=== PATIENT | female | born 1970 | race African-American/Black ===

== ENCOUNTER 2020-04-30 10:24 | Emergency (ER) | payer OTHER, SELFPAY ==
--- NOTE | 2020-04-30 10:36 | ED.EXTPRO ---
HPI - Extremity Problem General Chief complaint: Extremity Injury, Lower Stated complaint: left leg pain Time Seen by Provider: 04/30/20 10:50 Source: patient and RN notes reviewed Mode of arrival: ambulatory Limitations: no limitations History of Present Illness HPI Narrative: 50-year-old female presents with concern for left anterior upper leg pain. Reports symptoms started yesterday, without known injury or trauma. Reports she usually works out 2 days a week on a treadmill, elliptical, bike, did not notice any pain with her last workout 2 days ago. She denies any swelling, redness, bruising. Reports no pain at rest, pain with walking and certain movements of her leg. Reports pain with deep palpation to the anterior thigh. Denies hip pain, knee pain. Denies any calf redness, swelling, tenderness. Denies intervention. MD Complaint: extremity pain Related Data Home Medications Medication Instructions Recorded Confirmed Calcium 04/30/20 Pain Medication Unknown 04/30/20 ergocalciferol (vitamin D2) 04/30/20 Allergies Allergy/AdvReac Type Severity Reaction Status Date / Time codeine Allergy Severe GI UPSET Verified 02/15/19 15:20 Review of Systems Review of Systems: Narrative: CONSTITUTIONAL: Denies malaise, chills, sweats, or fever. CARDIOVASCULAR: Denies chest pain, palpitations, or edema. RESPIRATORY: Denies cough or dyspnea. SKIN: Denies redness, swelling, bruising, open skin MUSCULOSKELETAL: Reports left anterior upper leg pain with weightbearing, certain movements, no pain at rest NEUROLOGIC: Denies numbness, weakness All systems reviewed & are unremarkable except as noted in HPI and below PMFSH Surgical History Surgical History (Updated 02/15/19 @ 16:02 by Kristy Gifford PA-C) History of cholecystectomy History of gastric bypass History of hysterectomy History of inguinal hernia repair Family History Family History (Updated 11/15/13 @ 07:13 by DOCTOR UNKNOWN) Father Hypertension Sibling Hypertension Grandparent Family history of elevated blood lipids Mother Patient's mother is Hypertension Family history of lung cancer Social History Social History Smoking status: Never smoker Second hand tobacco smoke exposure: No Alcohol intake: never Comments At time of signature, agree with nursing past medical, surgical, social and family history. There is no relevant family history pertinent to the presenting complaint Exam Narrative: Exam Narrative: GENERAL: Well-appearing, well-nourished, and in no acute distress. HEAD: Normocephalic, atraumatic. EYES: PERRLA, conjunctivae clear NECK: Supple. CHEST: Speaks in full sentences. No respiratory distress. HEART: Regular rate and rhythm. Normal and equal peripheral pulses. EXTREMITIES: Left hip, knee have normal strength and sensation, normal range of motion. No edema or ecchymosis. 5/5 strength with hip and knee flexion and extension. Normal sensation with sensitivity to light touch and pain. Anterior quadricep tenderness to deep palpation, no hip tenderness, no iliac crest tenderness, no knee tenderness. No open wounds, no skin tenting, no devitalized tissue or atrophy, no trophic changes, no obvious deformity, alignment normal, nearby joints and structures intact. Distal pulses palpable and equal bilaterally, skin warm, dry, pink. Capillary refill less than 3 seconds. SKIN: Warm, dry, no rash. NEURO: Alert and oriented x3. PSYCH: Normal mood and affect Course Course Emergency Course: Patient is aware of diagnosis, understands and agrees to treatment plan. Anticipatory guidance given. Patient agrees to follow-up as directed and is aware of reasons to seek care at the emergency department. Portions of this record may have been created with voice recognition software Vital Signs Vital signs: Vital Signs Temperature 97.1 F L 04/30/20 10:41 Pulse Rate 85 04/30/20 10:41 Respiratory Rate 16 04/30/20 10:41 Bl
[2020-04-30 10:41] VITALS: BP 125/76; PULSE 85; RESP 16; TEMP 36.2; O2SAT 100
[2020-04-30 10:50] VITALS: BP 125/76; PULSE 85; RESP 16; TEMP 36.2; O2SAT 100
== END 2020-04-30 11:05 | disposition home or self-care (01) ==
PROVIDERS: Emergency Provider Nurse Practitioner
DX: S76.112A Strain of left quadriceps muscle, fascia and tendon, initial encounter (principal); X58.XXXA Exposure to other specified factors, initial encounter; Z98.84 Bariatric surgery status
CPT/HCPCS: 99213; G0463

== ENCOUNTER 2020-07-09 14:37 | Outpatient (CLI) | payer OTHER, SELFPAY ==
--- NOTE | ~2020-07-09 | MM_ITS ---
EXAMINATION: MM screening [facility] BI w alejandro HISTORY: Screening mammogram TECHNIQUE: Craniocaudal and mediolateral oblique 3-D tomosynthesis images were obtained and synthetic 2-D images were generated. CAD analysis was submitted and interpreted. COMPARISON: 04/21/2018, 07/01/2014 BREAST PARENCHYMAL COMPOSITION: There are scattered areas of fibroglandular density. FINDINGS: There is no evidence of suspicious mass, calcification, or architectural distortion to sugg est malignancy in either breast. There has been no suspicious interval change. IMPRESSION: 1. No mammographic evidence of malignancy. 2. Recommend routine screening mammography in one year. BI-RADS Category 1: Negative Reviewed, dictated and finalized at location A.
== END 2020-07-09 14:38 | disposition home or self-care (01) ==
LOC: ANHIMG 14:40
PROVIDERS: PCP Obstetrics & Gynecology; Visit Provider Obstetrics & Gynecology
DX: Z12.31 Encounter for screening mammogram for malignant neoplasm of breast (principal)
CPT/HCPCS: 77063; 77067

== ENCOUNTER 2020-08-23 17:32 | Emergency (ER) | payer BC, SELFPAY ==
[2020-08-23 17:43] VITALS: BP 132/89; PULSE 91; RESP 16; TEMP 36.7; O2SAT 99
--- NOTE | 2020-08-23 17:43 | ED.LOWEXIN ---
HPI - Extremity Injury (Lower) General Chief Complaint: Wound/Laceration Stated Complaint: cut right ankle Time Seen by Provider: 08/23/20 17:43 Source: patient and RN notes reviewed Mode of arrival: ambulatory Limitations: no limitations History of Present Illness HPI Narrative: 50-year-old female presents to the [facility] with complaints of a laceration to the lateral aspect right ankle. 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 Unsure of tDap. Patient states that she was walking through the grass when something caught her on her ankle. Noticed a piece of glass laying in the grass Bleeding is controlled. Related Data Home Medications Medication Instructions Recorded Confirmed biotin 5,000 mcg disintegrating 10,000 mcg PO DAILY 05/02/20 06/13/20 tablet calcium carbonate 600 mg calcium 600 mg PO DAILY 05/02/20 06/13/20 (1,500 mg) tablet famotidine 20 mg tablet 20 mg PO DAILY 05/02/20 06/13/20 ferrous sulfate PO 05/02/20 06/13/20 multivitamin 1 tablet PO DAILY 05/02/20 06/13/20 Allergies Allergy/AdvReac Type Severity Reaction Status Date / Time codeine Allergy Severe GI UPSET Verified 06/13/20 09:23 Review of Systems Review of Systems: All systems reviewed & are unremarkable except as noted in HPI and below Constitutional: Constitutional: Reports no additional constitutional complaints Cardiovascular: Cardiovascular: Reports no additional cardiovascular complaints Respiratory: Respiratory: Reports no additional respiratory complaints Musculoskeletal: Musculoskeletal: Reports as per HPI and Reports joint swelling (Right lateral ankle) Integumentary/Breasts: Skin/Breast: Reports as per HPI Comments: Laceration right lateral ankle Neurologic: Reports system reviewed and no additional complaints, except as documented Psychiatric: Psychiatric: Reports no additional psychiatric complaints [facility] Past Medical History Medical History Left leg pain Surgical History Surgical History History of cholecystectomy History of gastric bypass History of hysterectomy History of inguinal hernia repair Family History Family History Father Hypertension Sibling Hypertension Grandparent Family history of elevated blood lipids Mother Patient's mother is Hypertension Family history of lung cancer Social History Social History Second hand tobacco smoke exposure: No Alcohol intake: never Substance use: never Substance use type: does not use Gender identity (if verbalized by the patient): Female Comments At the time of my signature, I reviewed and agree with the nursing past medical, surgical, social, and family history. There is no relevant family history pertinent to the patient complaint. Exam Const: General: no acute distress and alert Orientation/consciousness: patient oriented x3 Neck: Neck: normal visual inspection Chest: Chest palpation & inspection: normal inspection of the chest Resp: Effort & Inspection: normal respiratory effort Auscultation: clear to auscultation bilaterally Back/Spine/Pelvis: Back: no CVA tenderness Skin: General skin exam: normal color Wounds: wounds noted laceration right lateral ankle size (2 cm); no drainage Neuro: General: patient oriented x3 and moves all extremities Speech: normal speech Gait exam (Neuro): Normal gait present Extrem: General: normal to inspection and no pedal edema Psych: Appearance: grossly normal and well kempt Mental Status: mental status grossly normal Attitude: cooperative Thought content: Yes Normal thought content present Course Vital Signs Vital signs: Vital Signs Temperature 98.1 F 08/23/20 17:43 Pulse Rate 91 08/23/20 17:43 Respiratory Rate 16 08/23/20 17:43 Blood Pressure 13
[2020-08-23] MEDS: TETANUS,DIPHTHERIA,AC PERTUSSIS ADULT (0.5 ML) BOOSTRIX IM (18:11)
== END 2020-08-23 18:35 | disposition home or self-care (01) ==
PROVIDERS: Emergency Provider Nurse Practitioner
DX: S91.011A Laceration without foreign body, right ankle, initial encounter (principal); W25.XXXA Contact with sharp glass, initial encounter; Z23 Encounter for immunization; Z98.84 Bariatric surgery status
CPT/HCPCS: 12001; 90471; 90715; 99212; G0463

== ENCOUNTER 2020-09-10 17:29 | Emergency (ER) | payer BC, SELFPAY ==
[2020-09-10 17:36] VITALS: BP 114/70; PULSE 99; RESP 16; TEMP 36.7; O2SAT 100
--- NOTE | 2020-09-10 17:48 | ED.SKABFB ---
HPI - Skin/Abscess/Foreign Bdy General Chief complaint: Skin/Abscess/Foreign Body Stated complaint: stitches removal Time Seen by Provider: 09/10/20 17:49 Source: patient Mode of arrival: ambulatory Limitations: no limitations History of Present Illness HPI narrative: Sameer Perez is a 50 yo female who had sutures placed 17 days ago and has not had them removed yet because could not get into her doctor. She has 4 sutures on the lateral side of her right ankle Related Data Home Medications Medication Instructions Recorded Confirmed biotin 5,000 mcg disintegrating 10,000 mcg PO DAILY 05/02/20 09/10/20 tablet calcium carbonate 600 mg calcium 600 mg PO DAILY 05/02/20 09/10/20 (1,500 mg) tablet famotidine 20 mg tablet 20 mg PO DAILY 05/02/20 09/10/20 ferrous sulfate PO 05/02/20 06/13/20 multivitamin 1 tablet PO DAILY 05/02/20 09/10/20 Allergies Allergy/AdvReac Type Severity Reaction Status Date / Time codeine AdvReac Severe GI UPSET Verified 09/10/20 17:52 Review of Systems Review of Systems: Narrative: CONSTITUTIONAL: Denies fever, chills, sweats. EYES: Denies visual changes, redness, discharge. ENT: Denies rhinorrhea, congestion, sore throat, otalgia. CARDIOVASCULAR: Denies chest pain, palpitations, edema. RESPIRATORY: Denies dyspnea, wheezing, cough GASTROINTESTINAL: Denies abdominal pain, nausea, vomiting, diarrhea. GENITOURINARY: Denies dysuria, hematuria, abnormal discharge SKIN: Denies rash or itching. Suture removal NEUROLOGIC: Denies numbness, or focal weakness. PSYCHIATRIC: Denies anxiety or depression. [facility] Past Medical History Medical History Left leg pain Surgical History Surgical History History of cholecystectomy History of gastric bypass History of hysterectomy History of inguinal hernia repair Family History Family History Father Hypertension Sibling Hypertension Grandparent Family history of elevated blood lipids Mother Patient's mother is Hypertension Family history of lung cancer Social History Social History Second hand tobacco smoke exposure: No Alcohol intake: never Substance use: never Substance use type: does not use Gender identity (if verbalized by the patient): Female Comments At time of signature, I agree with nursing past medical, surgical, social and family history. There is no relevant family history pertinent to the presenting complaint. Exam Narrative: Exam Narrative: GENERAL: This is a well-nourished, well-developed patient, in mild distress. HEAD: normocephalic, atraumatic. EYES: Sclera clear/white. Vision is grossly intact. EARS: External ears normal, Hearing grossly intact. NOSE: External nose normal without nasal discharge, nares without redness, no rhinorrhea. THROAT: Mucous membranes moist, NECK: Neck supple, CARDIOVASCULAR: Regular rate and rhythm without murmurs, gallops, or rubs. RESPIRATORY: Clear to auscultation. Breath sounds equal bilaterally. No wheezes, rales, or rhonchi. GASTROINTESTINAL: not performed SKIN: warm, intact with no suspicious lesions or rash, good texture and turgor. 4 sutures right lateral ankle NEURO: awake, alert, and oriented to person, place and time. There were no obvious focal neurologic abnormalities. Steady gait EXTREMITIES: Normal range of motion. BACK: Nontender without deformity Course Course Emergency Course: Comes to [facility] for suture removal Removal of 4 sutures from lateral right ankle, area healed and well approximated, no redness, no drainage Vital Signs Vital signs: Vital Signs Temperature 98.0 F 09/10/20 17:36 Pulse Rate 99 09/10/20 17:36 Respiratory Rate 16 09/10/20 17:36 Blood Pressure 114/70 09/10/20 17:36 Pulse Oximetry
== END 2020-09-10 18:20 | disposition home or self-care (01) ==
PROVIDERS: Emergency Provider Nurse Practitioner
DX: S91.011A Laceration without foreign body, right ankle, initial encounter (principal); X58.XXXA Exposure to other specified factors, initial encounter
CPT/HCPCS: 99211; G0463

== ENCOUNTER 2021-04-21 07:58 | Outpatient (CLI) | payer BC, SELFPAY ==
--- NOTE | ~2021-04-21 | XR_ITS ---
EXAMINATION: XR UGIAC wo kub DATE: 04/21/2021 08:57 INDICATION: Gastric bypass. Dysphagia. Left-sided abdominal pain. TECHNIQUE: The patient drank thick barium, gas-producing crystals, and thin barium. A total of 710 fl uoroscopic images of the esophagus, stomach, and proximal small bowel were obtained. Fluoroscopy expo sure time was 1.6 minutes. Total DAP was 11.814 mGycm^2 COMPARISON: None. FINDINGS: The esophagus is normal without mass or stricture. Esophageal motility is normal. There is no hiatal hernia. Postoperative change of prior gastric bypass procedure with very small residual gas tric remnant with contrast passing almost immediately into the small bowel across the gastrojejunal a nastomosis. There was no gastroesophageal reflux with provocative maneuvers. The visualized small bow el is normal. IMPRESSION: 1. Expected appearance post gastric bypass procedure with prompt passage of contrast from the esophag us through the small gastric remnant and gastrojejunal anastomosis. No evident strictures. Reviewed, dictated and finalized at location A. HALMOLOGY TECHNICIAN IMPRESSION: 1. Expected appearance post gastric bypass procedure with prompt passage of con trast from the esophagus through the small gastric remnant and gastrojejunal an astomosis. No evident strictures.
[2021-04-21 09:56] LABS: Hematocrit 37.8 % (37.0-47.0); Hemoglobin 12.8 g/dL (12.0-15.0); Immature Reticulocyte Fraction 5.3 % (3.0-15.9); Mean Corpuscular HGB Conc 33.9 g/dl (32-36); Mean Corpuscular Volume 85.7 fl (80-100); Mean Platelet Volume 9.4 fl (7.4-10.4); Platelet Count Result 422 k/mm3 (150-375); Red Blood Count 4.41 M/mm3 (4.2-5.4); Red Cell Distribution Width 12.1 % (11.5-14.5); Reticulocyte Hemoglobin Conten 34.7 pg (28.2-35.7); Reticulocyte Percent 1.18 % (0.7-4.3); Reticulocytes Absolute 0.05 B/L (32.2-175.7); White Blood Count 3.4 K/mm3 (4.5-10.0)
[2021-04-21 10:05] LABS: Alanine Aminotransferase 17 U/L (4-35); Alkaline Phosphatase 103 U/L (38-126); Anion Gap 4 mmol/L (8-16); Aspartate Amino Transferase 22 U/L (14-36); Bilirubin,Total 0.4 mg/dL (0.2-1.3); Blood Urea Nitrogen 12 mg/dL (7-17); Calcium 8.7 mg/dL (8.4-10.2); Carbon Dioxide 28 mmol/L (22-30); Chloride 106 mmol/L (98-107); Estimated Glomerular Filt Rate > 60; Glucose 92 mg/dL (65-110); Potassium 3.6 mmol/L (3.4-5.0); Sodium 138 mmol/L (137-145)
[2021-04-21 10:48] LABS: Vitamin D 25 Hydroxy 32.7 ng/mL
[2021-04-21 11:09] LABS: Folic Acid 6.3 ng/mL (2.76->20); Vitamin B12 > 1000.0 pg/mL (239-931)
[2021-04-21 13:16] LABS: Iron 76 ug/dL (37-170)
[2021-04-21 13:19] LABS: Percent Iron Saturation 36 % (20-50)
[2021-04-23 20:18] LABS: Red Blood Cell Folate 392 ng/mL RBC (>280)
[2021-04-24 18:15] LABS: Vitamin A 21 mcg/dL (38-98)
== END 2021-04-21 07:59 | disposition home or self-care (01) ==
LOC: ANHIMG 08:09
DX: R13.10 Dysphagia, unspecified (principal); K95.89 Other complications of other bariatric procedure; K91.2 Postsurgical malabsorption, not elsewhere classified
CPT/HCPCS: 36415; 74246; 80053; 82306; 82525; 82607; 82728; 82746; 82747; 83540; 83550; 83735; 84590; 85027; 85046

== ENCOUNTER 2021-10-07 15:02 | Outpatient (CLI) | payer MEDICAID, SELFPAY ==
--- NOTE | ~2021-10-07 | MM_ITS ---
EXAMINATION: MM screening [facility] BI w alejandro HISTORY: Screening TECHNIQUE: Craniocaudal and mediolateral oblique 3-D tomosynthesis images were obtained and synthetic 2-D images were generated. CAD analysis was submitted and interpreted. COMPARISON: Comparison to multiple prior studies sequentially, with oldest reviewed study dated 04/20. BREAST PARENCHYMAL COMPOSITION: Breast composed of scattered areas of fibroglandular density FINDINGS: There is no evidence of suspicious mass, calcification, or architectural distortion to sugg est malignancy in either breast. There has been no suspicious interval change. IMPRESSION: 1. No mammographic evidence of malignancy. 2. Recommend routine screening mammography in one year. BI-RADS Category 1: Negative Reviewed, dictated and finalized at location A.
== END 2021-10-07 15:03 | disposition home or self-care (01) ==
LOC: ANHIMG 15:04
PROVIDERS: Visit Provider Obstetrics & Gynecology
DX: Z12.31 Encounter for screening mammogram for malignant neoplasm of breast (principal)
CPT/HCPCS: 77063; 77067

== ENCOUNTER 2022-02-08 13:09 | Emergency (ER) | payer OTHER, SELFPAY ==
[2022-02-08 14:00] VITALS: BP 108/81; PULSE 82; RESP 14; TEMP 37.2; O2SAT 100
--- NOTE | 2022-02-08 14:02 | ED.URI ---
HPI - URI/Sore Throat General Chief Complaint: Upper Respiratory Infection Stated Complaint: Coughing, Running Nose Time Seen by Provider: 02/08/22 14:02 Source: patient, RN notes reviewed and old records reviewed Mode of arrival: ambulatory Limitations: no limitations History of Present Illness HPI Narrative: 52-year-old female presents to the [facility] with 3 days of cough and runny nose. 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 Has taken Tylenol and Mucinex Related Data Home Medications Medication Instructions Recorded Confirmed phentermine 37.5 mg capsule 37.5 mg PO DAILY 02/08/22 02/08/22 Allergies Allergy/AdvReac Type Severity Reaction Status Date / Time codeine AdvReac Severe GI UPSET Verified 02/08/22 13:43 Review of Systems Review of Systems: All systems reviewed & are unremarkable except as noted in HPI and below Constitutional: Constitutional: Reports no additional constitutional complaints, Denies chills and Denies fever(s) Eyes: Eyes: Reports no additional eye complaints ENT: Reports as per HPI (Rhinorrhea), Reports post nasal drip and Reports sinus pressure Cardiovascular: Cardiovascular: Reports no additional cardiovascular complaints Respiratory: Respiratory: Reports as per HPI, Reports cough, Denies dyspnea and Denies wheezing Gastrointestinal: Gastrointestinal: Reports no additional gastrointestinal complaints Musculoskeletal: Musculoskeletal: Reports no additional musculoskeletal complaints Integumentary/Breasts: Skin/Breast: Reports system reviewed and no additional complaints, except as docu Neurologic: Reports system reviewed and no additional complaints, except as documented Psychiatric: Psychiatric: Reports no additional psychiatric complaints Allergic/Immunologic: Allergic/Immunologic: Reports no additional allergic/immunologic complaints [facility] Past Medical History Medical History (Updated 02/08/22 @ 14:17 by Bhavya Mendoza APRN) Left leg pain Surgical History Surgical History History of cholecystectomy History of gastric bypass History of hysterectomy History of inguinal hernia repair Family History Family History Father Hypertension Sibling Hypertension Grandparent Family history of elevated blood lipids Mother Patient's mother is Hypertension Family history of lung cancer Social History Social History Smoking status: Never smoker Second hand tobacco smoke exposure: No Alcohol intake: never Substance use: never Substance use type: does not use Gender identity (if verbalized by the patient): Female Comments At the time of my signature, I reviewed and agree with the nursing past medical, surgical, social, and family history. There is no relevant family history pertinent to the patient complaint. Exam Const: General: healthy appearing, comfortable, no acute distress, well developed, alert and well nourished Nutritional Appearance: well nourished and obese Orientation/consciousness: patient oriented x3 Limitations: no limitations HENMT: Head: normal to inspection Ears: external ears normal, TM's normal bilaterally and EAC's normal Face/Nose/Sinus: Normal external nose present and Nasal discharge present clear bilateral Face and sinus: normal facial exam Mouth: Yes Normal oral and palatal mucosa present, Yes lip normal and Yes moist mucous membranes Throat: posterior oropharynx normal and uvula midline Eyes: General: appearance normal, both eyes and all related structures Conjunctivae: conjunctivae normal Pupils: Equal, round and reactive pupils present Neck: Neck: normal visual inspection, full ROM, no lymphadenopathy and no meningeal signs Chest: Chest palpation & inspection: normal inspection of the chest Resp: Effo
== END 2022-02-08 14:20 | disposition home or self-care (01) ==
PROVIDERS: Emergency Provider Nurse Practitioner
DX: J06.9 Acute upper respiratory infection, unspecified (principal); Z98.84 Bariatric surgery status; Z90.710 Acquired absence of both cervix and uterus
CPT/HCPCS: 87804; 99213; G0463

== ENCOUNTER 2022-03-12 22:07 | Emergency (ER) | payer OTHER, SELFPAY ==
--- NOTE | ~2022-03-12 | XR_ITS ---
XR chest 2V DATE: 03/12/2022 22:29 INDICATION: Shortness of breath for one week. Respiratory infection for 3 weeks. TECHNIQUE: PA and lateral views COMPARISON: 06/12/2011 two-view chest FINDINGS: Normal heart size. No hilar or mediastinal enlargement. No pulmonary infiltrate or consolid ation, pleural effusion or pulmonary vascular congestion or pneumothorax. Status post cholecystectomy. IMPRESSION: No active cardiopulmonary disease Status post cholecystectomy Reviewed, dictated and finalized at location A. SPECIALIST
[2022-03-12 22:13] VITALS: BP 133/82; PULSE 80; RESP 18; TEMP 36.6; O2SAT 100
[2022-03-12 22:59] LABS: Influenza A QL RT-PCR Negative (Negative); Influenza B QL RT-PCR Negative (Negative); RSV RNA, RT-PCR Negative (Negative); SARS-CoV-2 RNA PCR Negative
--- NOTE | 2022-03-13 01:37 | ECG_ITS ---
Measurements Intervals [place] Rate: 66 P: 63 SD: 167 QRS: 33 QRSD: 81 T: 33 QT: 413 QTc: 433 Interpretive Statements SINUS RHYTHM LOW-VOLTAGE QRS LIMB LEADS BORDERLINE ECG NO PREVIOUS ECG AVAILABLE FOR COMPARISON Electronically Signed On 03-13-2022 13:34:37 [employer] by Rafa Billy M.D.
--- NOTE | 2022-03-13 01:38 | ED.URI ---
HPI - URI/Sore Throat General Chief Complaint: Upper Respiratory Infection Stated Complaint: intermitten SOB Time Seen by Provider: 03/13/22 01:31 History of Present Illness HPI Narrative: 52-year-old female here for evaluation of cough, shortness of breath, and pressure in her chest for the past 2 weeks. States that the symptoms come on at random, no known provoking factors. Chest pain is described as a tightness , lasting seconds at a time before resolving without intervention. Tightness is worse with cough. She was seen in urgent care facility and was diagnosed with a viral syndrome 2 weeks ago upon symptom onset. Has been using albuterol inhaler with relief of her symptoms. Presents today due to longevity of symptoms. No leg swelling. She initially had fevers which have resolved. Related Data Home Medications Medication Instructions Recorded Confirmed phentermine 37.5 mg capsule 37.5 mg PO DAILY 02/08/22 02/08/22 doxycycline hyclate 100 mg capsule mg 03/12/22 Allergies Allergy/AdvReac Type Severity Reaction Status Date / Time codeine AdvReac Severe GI UPSET Verified 03/12/22 22:17 Review of Systems Review of Systems: Gen: Denies fevers or chills Eyes: Denies eye pain or visual change ENT: Denies congestion Respiratory: Reports shortness of breath and cough CV: Denies chest pain or palpitations GI: Denies abdominal pain nausea, emesis or diarrhea : denies burning, urgency, frequency or hematuria Musculoskeletal: Denies back pain or muscle pain Neuro: Denies numbness, tingling, weakness or focal weakness Skin: Denies rash Except as documented, all other systems reviewed and negative [facility] Past Medical History Medical History Left leg pain Surgical History Surgical History History of cholecystectomy History of gastric bypass History of hysterectomy History of inguinal hernia repair Family History Family History Father Hypertension Sibling Hypertension Grandparent Family history of elevated blood lipids Mother Patient's mother is Hypertension Family history of lung cancer Social History Social History Smoking status: Never smoker Second hand tobacco smoke exposure: No Alcohol intake: never Substance use: never Substance use type: does not use Gender identity (if verbalized by the patient): Female Exam Narrative: APPEARANCE: Well appearing, no pain in distress, well-nourished. Head: Normocephalic and atraumatic. EYES: PERRLA/EOMI, conjunctivae clear NOSE: No nasal drainage EARS: External ear normal in appearance THROAT: Oropharynx is clear. Mucous membranes are moist. NECK: Supple. No adenopathy, no masses. RESPIRATORY: Airway patent, respirations nonlabored. Clear to auscultation bilaterally, no rales, rhonchi, wheezing. CARDIOVASCULAR: Regular rate and rhythm without murmurs, rubs, or gallops. ABDOMINAL: Normoactive bowel sounds. Soft, nontender, nondistended. No rebound tenderness or guarding. MUSCULOSKELETAL: Reproducible chest pain on palpation of anterior thorax. Extremities are warm and well-perfused. Moves all extremities well. No edema. NEURO: Normal speech. No focal neurologic deficits. SKIN: Skin is warm and dry. No rashes. PSYCHIATRIC: Normal affect/mood. Course Vital Signs Vital signs: Vital Signs Temperature 97.9 F 03/12/22 22:13 Pulse Rate 80 03/12/22 22:13 Respiratory Rate 18 03/12/22 22:13 Blood Pressure 133/82 03/12/22 22:13 Pulse Oximetry 100 03/12/22 22:13 Oxygen Delivery Room Air 03/12/22 22:13 Temperature 97.9 F 03/12/22 22:13 Pulse Rate 92 03/13/22 04:11 Respiratory Rate 18 03/13/22 04:11 Blood Pressure 142/77 H 03/13/22 04:11 Pulse Oximetry 98 03/13/22 04:11 O
[2022-03-13 03:16] LABS: Basophils Percent Auto 0.9 % (0.2-1.2); Eosinophils Absolute Auto 0.1 K/mm3 (0-0.3); Eosinophils Percent Auto 2.6 % (0-4.4); Hematocrit 38.3 % (37.0-47.0); Hemoglobin 12.4 g/dL (12.0-15.0); Immature Granulocyte Absolute 0.01 K/mm3 (0.00-0.031); Immature Granulocyte Percent A 0.2 % (0-0.5); Lymphocytes Absolute Auto 2.23 K/mm3 (0.9-3.2); Lymphocytes Percent Auto 48.6 % (18.3-44.2); Mean Corpuscular HGB Conc 32.4 g/dl (32-36); Mean Corpuscular Hemoglobin 28.6 pg (26-34); Mean Corpuscular Volume 88.5 fl (80-100); Mean Platelet Volume 9.1 fl (7.4-10.4); Monocytes Absolute Auto 0.5 K/mm3 (0.1-0.6); Monocytes Percent Auto 10.7 % (2.6-8.5); Neutrophils Absolute Auto 1.7 K/mm3 (1.3-6.7); Platelet Count Result 410 k/mm3 (150-375); Red Blood Count 4.33 M/mm3 (4.2-5.4); Red Cell Distribution Width 12.9 % (11.5-14.5); White Blood Count 4.6 K/mm3 (4.5-10.0)
[2022-03-13 03:30] LABS: Alanine Aminotransferase 20 U/L (6-35); Albumin Level 4.1 g/dL (3.5-5.1); Alkaline Phosphatase 100 U/L (38-126); Anion Gap 3 mmol/L (8-16); Aspartate Amino Transferase 30 U/L (14-36); Bilirubin,Total 0.3 mg/dL (0.2-1.3); Blood Urea Nitrogen 16 mg/dL (7-17); Calcium 8.4 mg/dL (8.4-10.2); Carbon Dioxide 29 mmol/L (22-30); Chloride 105 mmol/L (98-107); Estimated CRCL calculation 103 ml/min; Estimated Glomerular Filt Rate > 60; Glucose 92 mg/dL (65-110); Potassium 3.9 mmol/L (3.4-5.0); Sodium 137 mmol/L (137-145)
[2022-03-13 03:37] LABS: D Dimer 0.34 ug/mL (<0.48)
[2022-03-13 03:41] LABS: Troponin I < 0.012 ng/mL (0.000-0.034)
[2022-03-13 04:11] VITALS: BP 142/77; PULSE 92; RESP 18; O2SAT 98
== END 2022-03-13 04:14 | disposition home or self-care (01) ==
PROVIDERS: Physician Assistant; Emergency Provider Emergency Medicine
DX: J40 Bronchitis, not specified as acute or chronic (principal); Z20.822 Contact with and (suspected) exposure to COVID-19; Z90.710 Acquired absence of both cervix and uterus; Z98.84 Bariatric surgery status; R94.31 Abnormal electrocardiogram [ECG] [EKG]
CPT/HCPCS: 36415; 71046; 80053; 84484; 85025; 85380; 87637; 93005; 99284

== ENCOUNTER 2022-04-20 19:18 | Emergency (ER) | payer OTHER, SELFPAY ==
--- NOTE | ~2022-04-20 | XR_ITS ---
EXAM: XR knee RT 3V DATE: 04/20/2022 19:34 HISTORY: diffuse rt knee swelling x 2 days ? etiology . COMPARISON: None available. FINDINGS: Normal mineralization. No fracture or dislocation. No lytic or blastic lesion. Mild medial joint space narrowing. Mild tricompartmental osteophytosis. Small fabella versus meniscal ossicle. N o erosion or periosteal change. Large varicosities. Moderate volume joint fluid. IMPRESSION: No acute osseous finding in the right knee. Moderate right knee joint effusion. Reviewed, dictated and finalized at location K. DATA ANALYST IMPRESSION: No acute osseous finding in the right knee. Moderate right knee yulia nt effusion.
--- NOTE | 2022-04-20 19:19 | ED.EXTPRO ---
HPI - Extremity Problem General Chief complaint: Extremity Problem,Nontraumatic Stated complaint: swelling to right knee Time Seen by Provider: 04/20/22 19:19 Source: patient Mode of arrival: ambulatory Limitations: no limitations History of Present Illness HPI Narrative: Ms. Perez is a 52-year-old female patient presenting to the clinic today with complaints of right knee pain/swelling. She reports symptoms have been going on for 2 days. She denies any known injury but has pain to the anterior knee. States that she has never had knee pain before. Related Data Home Medications Medication Instructions Recorded Confirmed phentermine 37.5 mg capsule 37.5 mg PO DAILY 02/08/22 04/20/22 Allergies Allergy/AdvReac Type Severity Reaction Status Date / Time codeine AdvReac Severe GI UPSET Verified 04/20/22 19:28 Review of Systems Review of Systems: Pertinent positives per HPI. Patient denies any fever, chills, rash, headache, visual changes, dizziness, cough, runny nose, sore throat, shortness of breath, chest pain, palpitations, nausea, vomiting, diarrhea, constipation, abdominal pain, or any urinary issues. PENDING SALE TO [facility] Past Medical History Medical History Left leg pain Surgical History Surgical History History of cholecystectomy History of gastric bypass History of hysterectomy History of inguinal hernia repair Family History Family History Father Hypertension Sibling Hypertension Grandparent Family history of elevated blood lipids Mother Patient's mother is Hypertension Family history of lung cancer Social History Social History Smoking status: Never smoker Second hand tobacco smoke exposure: No Alcohol intake: never Substance use: never Substance use type: does not use Gender identity (if verbalized by the patient): Female Comments At the time of my signature, I reviewed and agree with the nursing past medical, surgical, social, and family history. There is no relevant family history pertinent to the patient complaint. Exam Narrative: General: Well-developed, obese, in no apparent distress Head: Normocephalic, atraumatic. Cardio: Regular rate and rhythm, s1 and s2 normal, no murmur appreciated. Resp: Clear to auscultation bilaterally, no rhonchi, rales, wheezing or rubs. Musculoskeletal: No deformity, mild swelling to the anterior knee when compared to the left knee. Generalized tenderness to palpation over the anterior knee, no redness with mild swelling, grossly normal range of motion but having pain with full flexion, muscle strength strong and equal, peripheral pulse strong, no cyanosis, normal gait and station Course Course Emergency Course: Portions of this record may have been created with voice recognition software. Level of Care: Express Care Visit Vital Signs Vital signs: Vital Signs Temperature 36.7 C 04/20/22 19:25 Pulse Rate 75 04/20/22 19:25 Respiratory Rate 16 04/20/22 19:25 Blood Pressure 138/86 04/20/22 19:25 Pulse Oximetry 98 04/20/22 19:25 Oxygen Delivery Room Air 04/20/22 19:25 Temperature 36.7 C 04/20/22 19:25 Pulse Rate 75 04/20/22 19:25 Respiratory Rate 16 04/20/22 19:25 Blood Pressure 138/86 04/20/22 19:25 Pulse Oximetry 98 04/20/22 19:25 Oxygen Delivery Room Air 04/20/22 19:25 Vital signs reviewed MDM - Extremity (Nontraumatic) MDM Narrative Medical decision making narrative: At the time of visit patient is resting comfortably on the exam table. X-ray was performed of the right knee and shows a moderate knee effusion with osteoarthritis. Will send in prescription for some prednisone and apply an Yanick wrap. Supportive measures were discussed with maranda
[2022-04-20 19:25] VITALS: BP 138/86; PULSE 75; RESP 16; TEMP 36.7; O2SAT 98
== END 2022-04-20 19:51 | disposition home or self-care (01) ==
PROVIDERS: Emergency Provider Nurse Practitioner Family
DX: M25.561 Pain in right knee (principal); M25.461 Effusion, right knee; M17.11 Unilateral primary osteoarthritis, right knee; Z98.84 Bariatric surgery status
CPT/HCPCS: 73562; 99213; G0463

== ENCOUNTER 2022-04-29 20:58 | Emergency (ER) | payer OTHER, SELFPAY ==
--- NOTE | ~2022-04-29 | US_ITS ---
EXAMINATION: US venous doppler LE RT DATE: 04/29/2022 23:09 INDICATION: Right lower limb pain and swelling TECHNIQUE: Grayscale ultrasound images without and with compression and Doppler ultrasound images of the right lower extremity veins were obtained. COMPARISON: None. FINDINGS: The visualized portions of right common femoral vein, profunda (deep) femoral vein, femoral vein, pop liteal vein, peroneal trunk, posterior tibial veins, peroneal veins, gastrocnemius vein and greater s aphenous vein outflow are patent. 4.3 x 2.8 x 2.0 cm anechoic Altamirano's cyst at the right popliteal fos sa. IMPRESSION: 1. No deep venous thrombosis in the right lower limb. 2. Moderate-sized Altamirano cyst at the right popliteal fossa. Reviewed, dictated and finalized at location A. ETING FINANCIAL ANALYST
[2022-04-29 21:07] VITALS: BP 127/86; PULSE 81; RESP 20; TEMP 36.8; O2SAT 100
--- NOTE | 2022-04-29 22:06 | PC.NURSE ---
pt c/o r knee pain x 5 days. denies any injury. states she was seen at urgent care and they told her she had fluid on her knee. prescribed prednisone and was told if it didn't work to come to er for eval
--- NOTE | 2022-04-29 22:26 | ED.LOWEXIN ---
HPI - Extremity Injury (Lower) General Chief Complaint: Extremity Injury, Lower Stated Complaint: knee pain Time Seen by Provider: 04/29/22 22:15 History of Present Illness HPI Narrative: Patient is a 52-year-old female here for evaluation of atraumatic right knee pain over the past 5 days. Seen in urgent care upon symptom onset, had plain films that showed no acute findings, was given steroids without improvement of her pain. Presents today due to worsening pain, states that bearing weight is difficult but she has been able to do it. No pain with range of motion, fevers or chills, nausea or vomiting. Related Data Home Medications Medication Instructions Recorded Confirmed phentermine 37.5 mg capsule 37.5 mg PO DAILY 02/08/22 04/20/22 Allergies Allergy/AdvReac Type Severity Reaction Status Date / Time codeine AdvReac Severe GI UPSET Verified 04/29/22 21:59 Review of Systems Review of Systems: Gen.: Denies fevers or chills Eyes: Denies eye pain or visual change ENT: Denies congestion Respiratory: Denies shortness of breath or cough CV: Denies chest pain or palpitations GI: Denies abdominal pain nausea, emesis or diarrhea denies burning, urgency, frequency or hematuria Musculoskeletal: Reports right knee pain Neuro: Denies numbness, tingling, weakness or focal weakness Skin: Denies rash Except as documented, all other systems reviewed and negative [facility] Past Medical History Medical History Left leg pain Surgical History Surgical History History of cholecystectomy History of gastric bypass History of hysterectomy History of inguinal hernia repair Family History Family History Father Hypertension Sibling Hypertension Grandparent Family history of elevated blood lipids Mother Patient's mother is Hypertension Family history of lung cancer Social History Social History Smoking status: Never smoker Second hand tobacco smoke exposure: No Alcohol intake: never Substance use: never Substance use type: does not use Gender identity (if verbalized by the patient): Female Exam Narrative: APPEARANCE: Well appearing, no pain in distress, well-nourished. Head: Normocephalic and atraumatic. EYES: PERRLA/EOMI, conjunctivae clear NOSE: No nasal drainage EARS: External ear normal in appearance THROAT: Oropharynx is clear. Mucous membranes are moist. NECK: Supple. No adenopathy, no masses. RESPIRATORY: Airway patent, respirations nonlabored. Clear to auscultation bilaterally, no rales, rhonchi, wheezing. CARDIOVASCULAR: 2+ DP PT pulses bilaterally. Regular rate and rhythm without murmurs, rubs, or gallops. ABDOMINAL: Normoactive bowel sounds. Soft, nontender, nondistended. No rebound tenderness or guarding. MUSCULOSKELETAL: Right knee has scant amount of swelling along the superior aspect of the patella that is tender to palpation. She has no pain with passive or active range of motion of the knee. No overlying redness or warmth. No swelling or tenderness of the calf. NEURO: Normal speech. No focal neurologic deficits. SKIN: Skin is warm and dry. No rashes. PSYCHIATRIC: Normal affect/mood. Course Vital Signs Vital signs: Vital Signs Temperature 98.3 F 04/29/22 21:07 Pulse Rate 81 04/29/22 21:07 Respiratory Rate 20 04/29/22 21:07 Blood Pressure 127/86 04/29/22 21:07 Pulse Oximetry 100 04/29/22 21:07 Oxygen Delivery Room Air 04/29/22 21:07 Temperature 98.3 F 04/29/22 21:07 Pulse Rate 81 04/29/22 21:07 Respiratory Rate 20 04/29/22 21:07 Blood Pressure 127/86 04/29/22 21:07 Pulse Oximetry 100 04/29/22 21:07 Oxygen Delivery Room Air 04/29/22 21:07 MDM - Extremity Injury (Lower) MDM Narrat
[2022-04-29] MEDS: HYDROcodone/acetaminophen (*CRX) 5-325 MG TABLET 1 TAB PO (22:35)
== END 2022-04-30 00:15 | disposition home or self-care (01) ==
PROVIDERS: Emergency Provider Physician Assistant
DX: M71.21 Synovial cyst of popliteal space [Baker], right knee (principal); Z98.84 Bariatric surgery status
CPT/HCPCS: 93971; 99284; A9270

== ENCOUNTER 2022-04-30 10:18 | Outpatient (CLI) | payer OTHER, SELFPAY ==
[2022-04-30 12:33] LABS: Hematocrit 40.6 % (37.0-47.0); Hemoglobin 13.5 g/dL (12.0-15.0); Mean Corpuscular HGB Conc 33.3 g/dl (32-36); Mean Corpuscular Hemoglobin 28.4 pg (26-34); Mean Corpuscular Volume 85.5 fl (80-100); Platelet Count Result 473 k/mm3 (150-375); Red Blood Count 4.75 M/mm3 (4.2-5.4); Red Cell Distribution Width 12.4 % (11.5-14.5); White Blood Count 4.5 K/mm3 (4.5-10.0)
[2022-04-30 13:01] LABS: Vitamin D 25 Hydroxy 23.2 ng/mL
[2022-04-30 14:04] LABS: Alanine Aminotransferase 24 U/L (6-35); Albumin Level 4.4 g/dL (3.5-5.1); Alkaline Phosphatase 111 U/L (38-126); Anion Gap 5 mmol/L (8-16); Aspartate Amino Transferase 24 U/L (14-36); Bilirubin,Total 0.4 mg/dL (0.2-1.3); Blood Urea Nitrogen 15 mg/dL (7-17); Calcium 8.6 mg/dL (8.4-10.2); Carbon Dioxide 29 mmol/L (22-30); Chloride 104 mmol/L (98-107); Estimated Glomerular Filt Rate > 60; Glucose 87 mg/dL (65-110); Magnesium 2.2 mg/dL (1.6-2.3); Potassium 3.8 mmol/L (3.4-5.0); Sodium 138 mmol/L (137-145)
[2022-04-30 14:53] LABS: Vitamin B12 > 1000.0 pg/mL (239-931)
[2022-04-30 18:33] LABS: Iron 60 ug/dL (37-170)
[2022-04-30 18:51] LABS: Percent Iron Saturation 22 % (20-50)
[2022-05-05 12:38] LABS: Vitamin A 33 mcg/dL (38-98)
[2022-05-06 10:38] LABS: Red Blood Cell Folate 276 ng/mL RBC (>280)
== END 2022-04-30 10:19 | disposition home or self-care (01) ==
LOC: ANHLAB 10:22
DX: K91.2 Postsurgical malabsorption, not elsewhere classified (principal); K21.9 Gastro-esophageal reflux disease without esophagitis
CPT/HCPCS: 36415; 80053; 82306; 82607; 82728; 82747; 83540; 83550; 83735; 84590; 85027

== ENCOUNTER 2022-05-12 12:57 | Outpatient (CLI) | payer OTHER, SELFPAY ==
--- NOTE | ~2022-05-12 | MR_ITS ---
MRI of the right knee Clinical history: Pain Technique: Coronal proton density and proton density-weighted images, sagittal proton-density and T2 fat-sat images, and axial proton-density fat-saturated images were acquired. Findings: Anterior and posterior cruciate ligaments are intact. Medial collateral ligament and the la teral collateral ligament complex are intact. Popliteus tendon is intact. There is complex tearing of the anterior horn of the lateral meniscus. No medial meniscal tear identi fied. Articular cartilage is well preserved in the medial and lateral compartments. There is moderate to hi gh-grade chondromalacia at the inferolateral femoral trochlea. There is extensive high-grade chondrom alacia of the lateral patellar facet. Extensor mechanism is intact. Small joint effusion present. Moderate Altamirano's cyst measures 4 cm in [facility]. Impression: Complex tearing of the anterior horn of the lateral meniscus. Small joint effusion with moderate Altamirano's cyst. 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 Reviewed, dictated and finalized at [facility]. D DONOR RECRUITER Impression: Complex tearing of the anterior horn of the lateral meniscus. Small joint effusion with moderate Altamirano's cyst. 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
== END 2022-05-12 12:58 | disposition home or self-care (01) ==
LOC: ANHIMG 12:58
PROVIDERS: Visit Provider Orthopaedic Surgery
DX: S83.271A Complex tear of lateral meniscus, current injury, right knee, initial encounter (principal); X58.XXXA Exposure to other specified factors, initial encounter; M25.461 Effusion, right knee; M71.21 Synovial cyst of popliteal space [Baker], right knee
CPT/HCPCS: 73721

== ENCOUNTER 2022-07-07 02:09 | Day surgery (SDC) | payer OTHER, SELFPAY ==
[2022-06-30 09:55] VITALS: BMI 39.9
--- NOTE | 2022-06-30 09:59 | PC.NURSE ---
Report to the Outpatient Waiting Room, entrance under the green pavilion located off [facility], at time 1130 on date 07/07/22. Planned Procedure Time: 1330. Time changes happen often and if your time is changed the preop area will call you the afternoon before. - You and your visitor will be asked to self-screen and do not enter if you have any COVID symptoms. - A mask is optional within the hospital at this time. Patients may have clear liquids (water, carbonated beverages, clear teas, apple juice) until 3 hours prior to surgery with a maximum of 20 ounces. - No food from midnight until time of surgery Take the following medications with a SIP of water the morning of surgery: NONE DO NOT STOP ANY OF YOUR OTHER PRESCRIPTION MEDICATIONS PRIOR TO SURGERY EXCEPT THE FOLLOWING Medications to discontinue per physician: VITAMINS/SUPPLEMENTS Date to take last dose: 07/03/22 Please no make-up, nail saudi arabian, hairspray, perfume, deodorant, or body powder the day of surgery. No jewelry (including any body piercings) or valuables the day of surgery, leave them at home. Please take a shower or bath the night before, or the morning of, surgery with an antibacterial soap. Wear comfortable, loose fitting clothing. - Jewelry must be removed prior to entering the operating room. Rings and piercings that are not removed may be cut off. - The hospital will not accept responsibility for valuables. - Please leave all valuables, including medications, at home the day of surgery. If you are going home after surgery, a licensed sanitation truck driver must drive you home. - NO public transportation without another adult if you receive anesthesia. - We recommend that an adult stay with you for 24 hours following discharge. - We also recommend that you do not drive, make important decision, drink alcoholic beverages, or take any drugs that were not prescribed by your health care provider for at least 24 hours after your discharge time. Follow any additional instructions given to you from your surgeon. If you or anyone in your household have experienced Covid symptoms in the past week, please notify your surgeon or the nurse liaison at the phone number below for possible testing. Telephone instructions given to PT - SID LOPEZ and asked if any additional questions and then verbalized understanding. Patient advised to call surgeon office or pre surgery nurse liaison [phone] if any additional questions.
[2022-07-07] VITALS (8 sets, daily range): BP systolic 99–132; BP diastolic 52–86; PULSE 64–82; RESP 12–16; TEMP 36.8–37.1; O2SAT 96–100
--- NOTE | 2022-07-07 07:16 | WPDHPUPDATE1 ---
History and Physical Update Update Date/Time: 07/07/22 07:16 History and Physical has been reviewed, including an updated exam of the patient. There are NO changes in the patient's condition. Risks, benefits, and alternatives have been discussed and questions answered. Patient agrees to proceed with procedure.
[2022-07-07] MEDS: LACTATED RINGERS 1,000 ML 30 ML IV CONT ×2 (12:38→16:40)
[2022-07-07] MEDS: ACETAMINOPHEN 500 MG TABLET 1000 MG PO (12:38)
--- NOTE | 2022-07-07 13:38 | WPDANESEPPF ---
Anes - Initial Pre Proc Eval Procedure: Operation Date: 07/07/22 13:30 Proposed Procedures p Right Knee Arthroscopy - Justen Palm MD Date/Time: 07/07/22 13:38 Surgeon: Justen Palm MD Pre Op Diagnosis: right knee lateral meniscus tear Patient Data Age: 52 Gender: F Height: 1.56 m Weight: 100.7 kg Last Vital Signs Temp 36.8 C 07/07/22 12:39 Pulse 76 07/07/22 12:39 Resp 16 07/07/22 12:39 BP 125/70 07/07/22 12:39 Pulse Ox 98 07/07/22 12:39 O2 Del Method Room Air 07/07/22 12:39 Allergies Allergy/AdvReac Type Severity Reaction Status Date / Time codeine AdvReac Severe GI UPSET Verified 07/07/22 12:12 Home Medications Medication Instructions Recorded Confirmed Type phentermine 37.5 mg capsule 37.5 mg PO DAILY 02/08/22 07/07/22 History chlorhexidine gluconate 4 % 1 applic topical ONCE #237 mL 06/28/22 07/07/22 Rx topical liquid (Hibiclens) calcium carbonate 500 mg calcium 500 mg PO DAILY 06/30/22 07/07/22 History (1,250 mg) tablet ergocalciferol (vitamin D2) 1,250 1,250 mcg PO WEEKLY 06/30/22 06/30/22 History mcg (50,000 unit) capsule (Vitamin D2) ferrous sulfate 325 mg (65 mg 325 mg PO DAILY 06/30/22 07/07/22 History iron) tablet (Iron (ferrous sulfate)) multivitamin 1 tablet PO DAILY 06/30/22 07/07/22 History omega 2-wyc-hme-fish oil 1,000 mg 1 cap PO DAILY 06/30/22 07/07/22 History (120 mg-180 mg) capsule (Fish Oil) Patient hx anesthesia problems: post op nausea/vomiting Family hx anesthesia problems: none Results Review: All pre-operative results and documents have been reviewed as part of the pre-operative evaluation. [facility] Past Medical History Medical History (Updated 07/07/22 @ 13:38 by Benjy Morrison MD) Left leg pain Morbid obesity Nausea after anesthesia Tear of lateral meniscus of right knee Surgical History Surgical History History of cholecystectomy History of gastric bypass History of hysterectomy History of inguinal hernia repair Family History Family History Father Hypertension Sibling Hypertension Grandparent Family history of elevated blood lipids Mother Patient's mother is Hypertension Family history of lung cancer Social History Social History Smoking status: Never smoker Second hand tobacco smoke exposure: No Alcohol intake: never Substance use: never Substance use type: does not use Living arrangements: with family Gender identity (if verbalized by the patient): Female Spiritual care concerns: No Anes - Eval Final PreProcedure Day of Procedure 07/07/22 13:38 Patient weight: morbidly obese Heart: regular rate and rhythm Lungs: clear to auscultation Airway: Mallampati scale class II Neurological: alert and oriented Last oral intake: >/= 8 hours ASA classification: III Emergent: no Anesthetic plan: proceed Anesthesia type and monitoring: general LMA and standard monitoring Results Review: All pre-operative results and documents have been reviewed as part of the pre-operative evaluation. Informed Consent: The patient's anesthetic plan and its attendant risks and benefits were discussed with the patient/family/POA. Questions were solicited and answers provided to the satisfaction of the patient/family/POA.
[2022-07-07] MEDS: SCOPOLAMINE 1.5 MG PATCH TRANSDERM (13:47)
[2022-07-07] MEDS: CELECOXIB 200 MG CAPSULE PO (13:47)
[2022-07-07] MEDS: ceFAZolin 2 GM/D5W 50 ML 2 GM/50 ML BAG IVPB (15:18)
[2022-07-07] MEDS: BUPivacaine HCL 0.25% PF 10 ML VIAL INFILTRATE (15:52)
--- NOTE | 2022-07-07 16:55 | P.OP_ITS ---
Procedure Note - Detailed Date of Procedure 07/07/22 Pre-op Diagnosis right knee lateral meniscus tear Post-op Diagnosis Same Procedure Performed RIGHT KNEE SCOPE Surgeon Justen Palm MD Anesthesia General Description of Procedure PATIENT WAS TAKEN TO THE OPERATING ROOM SUITE. ANESTHESIA WAS INDUCED. THE RIGHT LEG WAS PREPPED AND DRAPED STERILE. TROCARS WERE PLACED IN TO THE KNEE JOINT IN THE USUAL FASHION. THERE WAS A MODERATE EFFUSION. THE CAMERA WAS INTRODUCED. THERE WAS MODERATE CHONDROMALACIA TO THE PATELLA FEMORAL JOINT. THERE WAS A LOT OF SYNOVITIS IN ALL COMPARTMENTS. THE MEDIAL COMPARTMENT SHOWED MINIMAL CHONDROMALACIA TO THE MEDIAL FEMORAL CONDYLE AND PLATEAU. THERE WAS NO MEDIAL MENISCUS TEAR. THE ACL WAS INTACT. THE LATERAL MENISCUS WAS TORN AT THE MID SUBSTANCE AND EXTENDED TO THE ANTERIOR HORN TO THE ANTERIOR ROOT, AND WAS A LARGE COMPLEX TEAR. THE TEAR WAS RESECTED DOWN TO A SMOOTH BASE. APPROXIMATELY 30% OF THE MENISCUS WAS REMOVED. THE LATERAL COMPARTMENT HAD MINIMAL CHONDROMALACIA AT THE LATERAL PLATEAU OR LATERAL FEMORAL CONDYLE. A SYNOVECTOMY WAS PREFORMED. THE PATELLO FEMORAL JOINT UNDERWENT CHONDROPLASTY OVER THE PATELLA AND TROCHLEA. THERE WAS GRADE 2 CHONDROMALACIA IN A SMALL SECTION OF THE OF THE PATELLA. SYNOVECTOMY WAS PREFORMED IN THE SUPERIOR MEDIAL COMP ARTMENT. THE WOUNDS WERE APPROXIMATED WITH 4.0 NYLON. STERILE DRESSING WAS APPLIED. PATIENT WAS EXTUBATED. Estimated Blood Loss -5.0 Complications No immediate complications Condition Stable Disposition PACU
[2022-07-07] MEDS: oxyCODONE HCL (*CRX) 5 MG TAB IR PO (17:55)
--- NOTE | 2022-07-07 18:36 | SUR.PHASEII ---
pt meets discharge criteria and is waiting for her ride to come pick her up.
[2022-07-07] MEDS: ONDANSETRON HCL ODT 4 MG TABLET PO (18:47)
== END 2022-07-07 18:48 | disposition home or self-care (01) ==
PROVIDERS: Visit Provider Orthopaedic Surgery
PROC: (CPT 29870; principal; 2022-07-07 13:30)
DX: M23.341 Other meniscus derangements, anterior horn of lateral meniscus, right knee (principal); M65.861 Other synovitis and tenosynovitis, right lower leg; M94.261 Chondromalacia, right knee; Z98.84 Bariatric surgery status; E66.01 Morbid (severe) obesity due to excess calories; Z68.41 Body mass index [BMI] 40.0-44.9, adult
CPT/HCPCS: 29881; 29876; A9270; J0690; J1100; J1170; J2250; J2405; J2704; J3010; J7120

== ENCOUNTER 2023-02-23 15:58 | Outpatient (CLI) | payer OTHER, SELFPAY ==
--- NOTE | ~2023-02-23 | MM_ITS ---
EXAMINATION: MM screening [facility] BI w alejandro HISTORY: Screening mammogram TECHNIQUE: Craniocaudal and mediolateral oblique 3-D tomosynthesis images were obtained and synthetic 2-D images were generated. CAD analysis was submitted and interpreted. COMPARISON: 10/07/2021, 07/09/2020, 04/21/2018 BREAST PARENCHYMAL COMPOSITION: There are scattered areas of fibroglandular density. FINDINGS: No suspicious mass, calcification, or architectural distortion are identified in either david ast to suggest malignancy. There has been no suspicious interval change. IMPRESSION: 1. No mammographic evidence of malignancy. 2. Recommend routine screening mammography in one year. BI-RADS Category 1: Negative Reviewed, dictated and finalized at location A. TATION OPERATOR
== END 2023-02-23 15:59 | disposition home or self-care (01) ==
LOC: ANHIMG 16:16
PROVIDERS: PCP Obstetrics & Gynecology; Visit Provider Obstetrics & Gynecology
DX: Z12.31 Encounter for screening mammogram for malignant neoplasm of breast (principal)
CPT/HCPCS: 77063; 77067

== ENCOUNTER 2023-05-10 17:55 | Emergency (ER) | payer OTHER, SELFPAY ==
--- NOTE | ~2023-05-10 | CT_ITS ---
Non-contrast CT scan of the Abdomen and Pelvis Clinical indication: Right flank pain Technique: 2.5 mm axial scans were obtained through the abdomen and pelvis without intravenous or or al contrast. Dose reduction technique was used on this scan by utilizing automated exposure control a nd iterative reconstruction technique. The dose-length product (DLP) was 1117.81 mGy-cm. Findings: Images through the lung bases reveal no abnormalities. 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 No renal or ureteral stones se en. No left hydronephrosis. The liver, spleen, pancreas, and adrenals appear normal. Cholecystectomy clips are present. There is no aortic aneurysm. There is no evidence of bowel obstruction. There is evidence of prior bariatric surgery. Images through the pelvis were performed. There is no evidence of ascites or lymphadenopathy. Urinary bladder unremarkable. No pelvic mass evident. Small bilateral fat-containing inguinal hernias are pr esent. 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 No stones identified. Small bilateral fat-containing inguinal hernias. Reviewed, dictated and finalized at location M. 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 No st ones identified. Small bilateral fat-containing inguinal hernias.
--- NOTE | ~2023-05-10 | CT_ITS ---
CT of the Abdomen and Pelvis: Indication: Right UPJ obstruction, hematuria Technique: 2.5 mm axial scans were obtained through the abdomen and pelvis prior to and following in travenous administration of 130 cc of Omnipaque 350. Dose reduction technique was used on this scan b y utilizing automated exposure control and iterative reconstruction technique. The dose-length produc t (DLP) was 2564.13 mGy-cm. Findings: Scans through the lung bases are unremarkable. The liver, spleen, pancreas, and adrenal glands are within normal limits. Cholecystectomy clips are p resent. There is mild right hydronephrosis without delayed nephrogram or distinct evidence of UPJ obs truction. 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 There is a small focal area of decreased cor tical enhancement in the right kidney. Left kidney unremarkable. No evidence of aortic aneurysm. No lymphadenopathy. No bowel obstruction or bowel wall thickening. There is evidence of prior bariatric surgery. Images through the pelvis were performed. Urinary bladder unremarkable. No ascites. No pelvic mass. Impression: Small focal area of decreased right renal cortical enhancement. Consider focal/mild pyelonephritis. Mild right hydronephrosis may related to malrotation the right kidney. No distinct evidence for UPJ o bstruction or delayed nephrogram. Reviewed, dictated and finalized at location M. [employer] Impression: Small focal area of decreased right renal cortical enhancement. Consider focal/ mild pyelonephritis. Mild right hydronephrosis may related to malrotation the right kidney. No disti nct evidence for UPJ obstruction or delayed nephrogram.
[2023-05-10 18:14] VITALS: BP 136/88; PULSE 76; RESP 16; TEMP 36.6; O2SAT 100
--- NOTE | 2023-05-10 18:18 | ED.ABDPAIN ---
HPI - Abdominal Pain General Chief Complaint: Abdominal Pain <CLAUDE Dudley Last Filed: 05/11/23 14:01> Stated Complaint: RLQ, R flank sharp pains <Kristy Gifford PA-C - Last Filed: 05/11/23 14:01> Time Seen by Provider: 05/10/23 18:18 <Kristy Gifford PA-C - Last Filed: 05/11/23 14:01> Focused HPI: This is a 53 year old female that presents to the ER for right sided flank pain. Ongoing over the last couple of hours. Associated with nausea and abdominal pain. Denies fever, vomiting, dysuria or hematuria. GENERAL: Well-appearing, well-nourished, and in no acute distress. HEAD: Normocephalic, atraumatic. CHEST: Clear to auscultation. ?No respiratory distress. HEART: Regular rate and rhythm.? NEURO: ?Alert and oriented x3. Patient screened in triage and initial orders placed.? ?Additional care and disposition to be based upon?diagnostic testing and treatment. <Kristy Gifford PA-C - Last Filed: 05/11/23 14:01> Focused HPI: This is a 53 year old female that presents to the ER for right sided flank pain. Ongoing over the last couple of hours. Began suddenly. Associated with nausea and R lower abdominal pain. Denies fever, vomiting, dysuria or hematuria, diarrhea, constipation. Denies hx of kidney stones. Took a muscle relaxer prior to arrival and reports some improvement of pain currently. GENERAL: Well-appearing, well-nourished, and in no acute distress. HEAD: Normocephalic, atraumatic. CHEST: Clear to auscultation. ?No respiratory distress. HEART: Regular rate and rhythm.? NEURO: ?Alert and oriented x3. Patient screened in triage and initial orders placed.? ?Additional care and disposition to be based upon?diagnostic testing and treatment. <CLAUDE Almaraz Last Filed: 05/11/23 04:42> Source: patient <CLAUDE Almaraz Last Filed: 05/11/23 04:42> Mode of arrival: ambulatory <Kerry Henning PA-C - Last Filed: 05/11/23 04:42> Limitations: no limitations <Kerry Henning PA-C - Last Filed: 05/11/23 04:42> Related Data Home Medications: Home Medications Medication Instructions Recorded Confirmed phentermine 37.5 mg capsule 37.5 mg PO DAILY 02/08/22 07/22/22 calcium carbonate 500 mg calcium 500 mg PO DAILY 06/30/22 07/22/22 (1,250 mg) tablet ergocalciferol (vitamin D2) 1,250 1,250 mcg PO WEEKLY 06/30/22 07/22/22 mcg (50,000 unit) capsule (Vitamin D2) ferrous sulfate 325 mg (65 mg 325 mg PO DAILY 06/30/22 07/22/22 iron) tablet (Iron (ferrous sulfate)) multivitamin 1 tablet PO DAILY 06/30/22 07/22/22 omega 8-mlw-yzn-fish oil 1,000 mg 1 cap PO DAILY 06/30/22 07/22/22 (120 mg-180 mg) capsule (Fish Oil) tramadol 50 mg tablet 50 mg PO Q6-8H PRN pain 07/23/22 <Kristy Gifford PA-C - Last Filed: 05/11/23 14:01> Allergies/Adverse Reactions: Allergies Allergy/AdvReac Type Severity Reaction Status Date / Time codeine AdvReac Severe GI UPSET Verified 07/22/22 09:09 <Kristy Gifford PA-C - Last Filed: 05/11/23 14:01> Review of Systems Review of Systems: CONSTITUTIONAL: Denies fever, chills, or sweats. GASTROINTESTINAL: See HPI. GENITOURINARY: Denies dysuria or hematuria. MUSCULOSKELETAL: See HPI. <Kerry Henning PA-C - Last Filed: 05/11/23 04:42> All systems reviewed & are unremarkable except as noted in HPI and below <Kerry Henning PA-C - Last Filed: 05/11/23 04:42> PMFSH Past Medical History Medical History: Medical History Left leg pain Morbid obesity Nausea after anesthesia Tear of lateral meniscus of right knee <Kristy Gifford PA-C - Last Filed: 05/11/23 14:01> Surgical History Surgical History: Surgical History History of cholecystectomy History of gastric bypass History of hysterectomy History of inguinal hernia repair <Kristy Beverly
[2023-05-10 22:24] LABS: Basophils Percent Auto 0.5 % (0.2-1.2); Eosinophils Percent Auto 0.1 % (0-4.4); Hematocrit 42.2 % (37.0-47.0); Hemoglobin 13.5 g/dL (12.0-15.0); Immature Granulocyte Absolute 0.02 K/mm3 (0.00-0.031); Immature Granulocyte Percent A 0.3 % (0-0.5); Lymphocytes Percent Auto 15.5 % (18.3-44.2); Mean Corpuscular Hemoglobin 28.3 pg (26-34); Mean Corpuscular Volume 88.5 fl (80-100); Mean Platelet Volume 9.7 fl (7.4-10.4); Monocytes Absolute Auto 0.6 K/mm3 (0.1-0.6); Monocytes Percent Auto 7.3 % (2.6-8.5); Neutrophils Absolute Auto 5.9 K/mm3 (1.3-6.7); Neutrophils Percent Auto 76.3 % (45.5-73.1); Platelet Count Result 419 k/mm3 (150-375); Red Blood Count 4.77 M/mm3 (4.2-5.4); Red Cell Distribution Width 12.5 % (11.5-14.5); White Blood Count 7.8 K/mm3 (4.5-10.0)
[2023-05-10 22:37] LABS: Alanine Aminotransferase 18 U/L (6-35); Albumin Level 4.4 g/dL (3.5-5.1); Alkaline Phosphatase 122 U/L (38-126); Anion Gap 6 mmol/L (8-16); Aspartate Amino Transferase 26 U/L (14-36); Bilirubin,Total 0.4 mg/dL (0.2-1.3); Blood Urea Nitrogen 13 mg/dL (7-17); Calcium 9.8 mg/dL (8.4-10.2); Carbon Dioxide 28 mmol/L (22-30); Chloride 106 mmol/L (98-107); Estimated CRCL calculation 86 ml/min; Estimated Glomerular Filt Rate > 60; Glucose 107 mg/dL (65-110); Lipase 81 U/L (23-300); Sodium 140 mmol/L (137-145)
[2023-05-10 22:50] LABS: Appearance Urine Cloudy (Clear); Bacteria Urine 1+ /hpf; Bilirubin Urine Negative (Negative); Blood Urine 3+ (Negative); Calcium Oxalate Crystals Urine Present /hpf; Color Urine Dark Yellow (Yellow); Glucose Urine UA Negative (Negative); Hyaline Casts Urine Present /lpf; Ketones Urine Trace mg/dL (Negative); Leukocyte Esterase Ur Trace LEU/UL (Negative); Need Manual Microscopic Reviewed; Nitrate Urine Negative (Negative); Protein Urine 2+ mg/dL (Negative); RBC Urine >100 /hpf (0-2); Squamous Epithelial Cell Urine Moderate /hpf (Few); pH Urine 5.5 (5.0-9.0)
[2023-05-10 22:53] LABS: Specific Grav Ur 1.036 (1.001-1.035)
[2023-05-10 22:54] LABS: Add Urine Microscopic? YES
[2023-05-11 00:07] VITALS: BP 124/88; PULSE 82; RESP 16; TEMP 36.7; O2SAT 100
[2023-05-11 00:19] LABS: Pregnancy On Board Control Positive; Urine Pregnancy Test Negative
[2023-05-11] MEDS: SODIUM CHLORIDE 0.9% IV 1,000 ML 999 ML IV CONT (01:50)
[2023-05-11] MEDS: ONDANSETRON INJ 4 MG/2 ML VIAL IV PUSH (01:51)
[2023-05-11] MEDS: MORPHINE SULFATE (*CRX) 4 MG/ML INJ IV PUSH (01:52)
[2023-05-11 02:00] VITALS: BP 123/71; PULSE 77; RESP 16; O2SAT 100
[2023-05-11] MEDS: HYDROmorphone HCL INJ (*CRX) 1 MG/ML SYR 0.5 MG IV PUSH (03:33)
[2023-05-11 04:00] VITALS: BP 117/80; PULSE 68; RESP 15; O2SAT 99
[2023-05-11 05:51] VITALS: BP 135/73; PULSE 66; RESP 17; TEMP 36.8; O2SAT 100
== END 2023-05-11 05:52 | disposition home or self-care (01) ==
PROVIDERS: Emergency Medicine; Physician Assistant; Emergency Provider Physician Assistant
DX: N12 Tubulo-interstitial nephritis, not specified as acute or chronic (principal); R31.9 Hematuria, unspecified; E66.01 Morbid (severe) obesity due to excess calories; Z68.37 Body mass index [BMI] 37.0-37.9, adult; Z98.84 Bariatric surgery status; Z90.49 Acquired absence of other specified parts of digestive tract; Z90.710 Acquired absence of both cervix and uterus
CPT/HCPCS: 36415; 74176; 74178; 80053; 81001; 81025; 83690; 85025; 87086; 96361; 96365; 96375; 99284; J0696; J1170; J2270; J2405; J7030; Q9967

== ENCOUNTER 2023-09-27 03:05 | Day surgery (SDC) | payer OTHER, SELFPAY ==
[2023-09-08 12:58] VITALS: BMI 39.5
[2023-09-27 08:55] VITALS: BP 114/74; PULSE 70; RESP 18; TEMP 36.2; O2SAT 100; BMI 38.6
[2023-09-27] MEDS: LACTATED RINGERS 1,000 ML 150 ML IV CONT (09:16)
--- NOTE | 2023-09-27 09:31 | WPDANESEPPF ---
Anes - Initial Pre Proc Eval Procedure: Operation Date: 09/27/23 10:30 Proposed Procedures p Screening Colonoscopy - Cyril Fisher MD Date/Time: 09/27/23 09:31 Surgeon: Cyril Fisher MD Pre Op Diagnosis: Neoplasm screening Patient Data Age: 53 Gender: F Height: 1.55 m Weight: 92.8 kg Last Vital Signs Temp 97.2 F L 09/27/23 08:55 Pulse 70 09/27/23 08:55 Resp 18 09/27/23 08:55 BP 114/74 09/27/23 08:55 Pulse Ox 100 09/27/23 08:55 O2 Del Method Room Air 09/27/23 08:55 Allergies Allergy/AdvReac Type Severity Reaction Status Date / Time codeine AdvReac Severe GI UPSET Verified 09/27/23 09:06 Home Medications Medication Instructions Recorded Confirmed Type calcium carbonate 500 mg PO DAILY 06/30/22 09/27/23 History ferrous sulfate 325 mg (65 mg 325 mg PO DAILY 06/30/22 09/27/23 History iron) tablet (Iron (ferrous sulfate)) multivitamin 1 tablet PO DAILY 06/30/22 09/27/23 History ondansetron 4 mg disintegrating 4 mg PO Q8H PRN nausea and 05/11/23 09/27/23 Rx tablet vomiting #15 tabs albuterol sulfate 90 mcg/actuation 1 inh inhalation DAILY PRN sob 09/08/23 09/27/23 History aerosol inhaler cyclobenzaprine 10 mg tablet 10 mg PO DAILY PRN muscle spasms 09/08/23 09/27/23 History doxycycline hyclate 100 mg capsule 100 mg PO DAILY 09/08/23 09/27/23 History omeprazole 40 mg capsule,delayed 40 mg PO DAILY 09/08/23 09/27/23 History release phentermine 8 mg tablet (Lomaira) 8 mg PO DAILY 09/08/23 09/27/23 History phentermine-topiramate 25 mg PO DAILY 09/08/23 09/27/23 History semaglutide (weight loss) 1.7 2.4 mg subcut 09/08/23 History mg/0.75 mL subcutaneous pen injector (Jaja) Patient hx anesthesia problems: none Family hx anesthesia problems: none Results Review: All pre-operative results and documents have been reviewed as part of the pre-operative evaluation. [facility] Past Medical History Medical History Left leg pain Morbid obesity Nausea after anesthesia Tear of lateral meniscus of right knee Surgical History Surgical History History of cholecystectomy History of gastric bypass History of hysterectomy History of inguinal hernia repair Family History Family History Father Hypertension Sibling Hypertension Grandparent Family history of elevated blood lipids Mother Patient's mother is Hypertension Family history of lung cancer Social History Social History Smoking status: Never smoker Second hand tobacco smoke exposure: No Alcohol intake: never Substance use: never Substance use type: does not use Living arrangements: with family Gender identity (if verbalized by the patient): Female Spiritual care concerns: No Anes - Eval Final PreProcedure Day of Procedure 09/27/23 09:31 Patient weight: obese Heart: regular rate and rhythm Lungs: clear to auscultation Airway: Mallampati scale class II Neurological: alert and oriented Last oral intake: >/= 8 hours ASA classification: II Emergent: no Anesthetic plan: proceed Anesthesia type and monitoring: general GIVS and standard monitoring Results Review: All pre-operative results and documents have been reviewed as part of the pre-operative evaluation. Informed Consent: The patient's anesthetic plan and its attendant risks and benefits were discussed with the patient/family/POA. Questions were solicited and answers provided to the satisfaction of the patient/family/POA.
--- NOTE | 2023-09-27 09:45 | PM.HPGS ---
History of Present Illness History of Present Illness Consent: Risks, benefits, and alternatives have been discussed and questions answered. Patient agrees to proceed with procedure. Chief complaint: Neoplasm screening Narrative: Sameer Perez is a 53 year old female here for first screening colonoscopy Review of Systems Review of Systems: All systems reviewed & are unremarkable except as noted in HPI and below PMFSH Past Medical History Medical History (Updated 09/27/23 @ 09:46 by Cyril Fisher MD) Colon cancer screening Left leg pain Morbid obesity Nausea after anesthesia Tear of lateral meniscus of right knee Surgical History Surgical History History of cholecystectomy History of gastric bypass History of hysterectomy History of inguinal hernia repair Family History Family History Father Hypertension Sibling Hypertension Grandparent Family history of elevated blood lipids Mother Patient's mother is Hypertension Family history of lung cancer Social History Social History Smoking status: Never smoker Second hand tobacco smoke exposure: No Alcohol intake: never Substance use: never Substance use type: does not use Living arrangements: with family Gender identity (if verbalized by the patient): Female Spiritual care concerns: No Meds Home Medications and Allergies Home Medications Medication Instructions Recorded Confirmed Type calcium carbonate 500 mg PO DAILY 06/30/22 09/27/23 History ferrous sulfate 325 mg (65 mg 325 mg PO DAILY 06/30/22 09/27/23 History iron) tablet (Iron (ferrous sulfate)) multivitamin 1 tablet PO DAILY 06/30/22 09/27/23 History ondansetron 4 mg disintegrating 4 mg PO Q8H PRN nausea and 05/11/23 09/27/23 Rx tablet vomiting #15 tabs albuterol sulfate 90 mcg/actuation 1 inh inhalation DAILY PRN sob 09/08/23 09/27/23 History aerosol inhaler cyclobenzaprine 10 mg tablet 10 mg PO DAILY PRN muscle spasms 09/08/23 09/27/23 History doxycycline hyclate 100 mg capsule 100 mg PO DAILY 09/08/23 09/27/23 History omeprazole 40 mg capsule,delayed 40 mg PO DAILY 09/08/23 09/27/23 History release phentermine 8 mg tablet (Lomaira) 8 mg PO DAILY 09/08/23 09/27/23 History phentermine-topiramate 25 mg PO DAILY 09/08/23 09/27/23 History semaglutide (weight loss) 1.7 2.4 mg subcut 09/08/23 History mg/0.75 mL subcutaneous pen injector (Wegovy) Allergies Allergy/AdvReac Type Severity Reaction Status Date / Time codeine AdvReac Severe GI UPSET Verified 09/27/23 09:06 Vital Signs Vital Signs - 24 hr 09/27/23 08:55 Temperature 97.2 F L Pulse Rate 70 Respiratory Rate 18 Blood Pressure 114/74 Pulse Oximetry 100 Oxygen Delivery Room Air Exam Const: General: comfortable and no acute distress HENMT: Face/Nose/Sinus: Normal nares present Eyes: General: appearance normal, both eyes and all related structures Neck: Neck: no JVD Resp: Auscultation: clear to auscultation bilaterally Cardio: Rate: regular rate Rhythm: regular rhythm GI: Inspection: non-distended GI Palp: Yes Soft to palpation Skin: General skin exam: normal color Neuro: General: gait normal Speech: normal speech Extrem: General: normal to inspection Psych: Mental Status: mental status grossly normal Assessment and Plan Assessment and plan (1) Colon cancer screening: Code(s): Z12.11 - Encounter for screening for malignant neoplasm of colon Status: Acute Assessment and Plan: colonoscopy
[2023-09-27 10:10] VITALS: BP 99/63; PULSE 82; RESP 18; O2SAT 100
[2023-09-27 10:20] VITALS: BP 104/71; PULSE 73; RESP 18; O2SAT 100
[2023-09-27 10:30] VITALS: BP 107/71; PULSE 70; RESP 18; O2SAT 100
== END 2023-09-27 10:45 | disposition home or self-care (01) ==
PROVIDERS: PCP Nurse Practitioner Women's Health; Visit Provider Internal Medicine Gastroenterology
PROC: 0DJD8ZZ Inspection of Lower Intestinal Tract, Via Natural or Artificial Opening Endoscopic (ICD-10-PCS; CPT 45378; principal; 2023-09-27 10:30)
DX: Z12.11 Encounter for screening for malignant neoplasm of colon (principal); K64.8 Other hemorrhoids; E66.9 Obesity, unspecified; Z68.38 Body mass index [BMI] 38.0-38.9, adult
CPT/HCPCS: 45378; J2001; J2704; J7120

== ENCOUNTER 2024-01-17 21:18 | Emergency (ER) | payer OTHER, SELFPAY ==
--- NOTE | ~2024-01-17 | CT_ITS ---
CT of the Abdomen and Pelvis: Indication: Abdominal pain Technique: 2.5 mm axial scans were obtained through the abdomen and pelvis following intravenous adm inistration of 100 cc of Omnipaque 350. Dose reduction technique was used on this scan by utilizing a utomated exposure control and iterative reconstruction technique. The dose-length product (DLP) was 8 29.68 mGy-cm. COMPARISON: 05/10/2023 Findings: Scans through the lung bases are unremarkable. The liver, spleen, pancreas, adrenals and left kidney are within normal limits. Cholecystectomy clips are present. There is mild right hydronephrosis with 2 mm stone at the right UVJ. No evidence of aor tic aneurysm. No lymphadenopathy. No bowel obstruction or bowel wall thickening. There is evidence of prior bariatric surgery. Images through the pelvis were performed. Urinary bladder otherwise unremarkable. No pelvic mass evid ent. No ascites. Impression: 2 mm right UVJ stone, with mild right hydronephrosis. Reviewed, dictated and finalized at location . Impression: 2 mm right UVJ stone, with mild right hydronephrosis.
[2024-01-17 21:21] VITALS: BP 130/81; PULSE 81; RESP 17; TEMP 36.4; O2SAT 99
[2024-01-17 22:11] LABS: Add Urine Microscopic? YES; Appearance Urine Cloudy (Clear); Bacteria Urine None Seen /hpf; Bilirubin Urine Negative (Negative); Blood Urine 3+ (Negative); Calcium Oxalate Crystals Urine Present /hpf; Color Urine Dark Yellow (Yellow); Glucose Urine UA Negative (Negative); Ketones Urine Trace mg/dL (Negative); Leukocyte Esterase Ur Trace LEU/UL (Negative); Mucus Urine Present /lpf; Need Manual Microscopic Reviewed; Nitrate Urine Negative (Negative); Protein Urine 1+ mg/dL (Negative); RBC Urine >100 /hpf (0-2); Specific Grav Ur 1.026 (1.001-1.035); Squamous Epithelial Cell Urine None Seen /hpf (Few)
[2024-01-17 23:17] VITALS: BP 126/92; PULSE 74; RESP 18; O2SAT 100
[2024-01-17 23:25] LABS: Basophils Absolute Auto 0.1 K/mm3 (0.0-0.1); Basophils Percent Auto 0.7 % (0.2-1.2); Eosinophils Absolute Auto 0.1 K/mm3 (0-0.3); Eosinophils Percent Auto 0.9 % (0-4.4); Hematocrit 40.6 % (37.0-47.0); Hemoglobin 13.6 g/dL (12.0-15.0); Immature Granulocyte Absolute 0.02 K/mm3 (0.00-0.031); Immature Granulocyte Percent A 0.3 % (0-0.5); Immature Platelet Fraction Pct 3.3 % (0.9-11.2); Lymphocytes Absolute Auto 1.93 K/mm3 (0.9-3.2); Lymphocytes Percent Auto 27.6 % (18.3-44.2); Mean Corpuscular HGB Conc 33.5 g/dl (32-36); Mean Corpuscular Hemoglobin 28.9 pg (26-34); Mean Corpuscular Volume 86.4 fl (80-100); Mean Platelet Volume 9.9 fl (7.4-10.4); Monocytes Absolute Auto 0.9 K/mm3 (0.1-0.6); Monocytes Percent Auto 13.3 % (2.6-8.5); Neutrophils Percent Auto 57.2 % (45.5-73.1); Platelet Count Result 427 k/mm3 (150-375); Red Cell Distribution Width 12.4 % (11.5-14.5)
[2024-01-17 23:36] LABS: Alanine Aminotransferase 22 U/L (6-35); Albumin Level 4.4 g/dL (3.5-5.1); Alkaline Phosphatase 123 U/L (38-126); Anion Gap 9 mmol/L (4-12); Aspartate Amino Transferase 29 U/L (14-36); Bilirubin,Total 0.5 mg/dL (0.2-1.3); Blood Urea Nitrogen 15 mg/dL (7-17); Calcium 9.3 mg/dL (8.4-10.2); Carbon Dioxide 28 mmol/L (22-30); Chloride 103 mmol/L (98-107); Estimated CRCL calculation 64 ml/min; Estimated Glomerular Filt Rate > 60; Glucose 91 mg/dL (65-110); Lipase 162 U/L (23-300); Potassium 3.5 mmol/L (3.4-5.0); Sodium 140 mmol/L (137-145)
[2024-01-17 23:37] LABS: Pregnancy On Board Control Positive; Urine Pregnancy Test Negative
[2024-01-18] MEDS: MORPHINE SULFATE (*CRX) 4 MG/ML INJ IV PUSH (01:32)
[2024-01-18 01:59] VITALS: BP 138/85; PULSE 75; RESP 18; O2SAT 97
--- NOTE | 2024-01-18 02:15 | ED.GENADULT ---
HPI - General Adult General Chief complaint: Abdominal Pain Stated complaint: Pulling pain in lower right abd Time Seen by Provider: 01/17/24 23:35 History of Present Illness HPI narrative: Patient is a 53-year-old female who presents emergency department with chief complaint of abdominal pain. Patient reports been having pain in the right lower quadrant been increasing and now is throughout her lower quadrants. The patient reports he has prior history of bariatric surgery also history of kidney stones reports that she had a ultrasound done in her abdomen at a more ill recently and reports that the pain has gotten worse. Related Data Home Medications Medication Instructions Recorded Confirmed calcium carbonate 500 mg PO DAILY 06/30/22 09/27/23 ferrous sulfate 325 mg (65 mg 325 mg PO DAILY 06/30/22 09/27/23 iron) tablet (Iron (ferrous sulfate)) multivitamin 1 tablet PO DAILY 06/30/22 09/27/23 albuterol sulfate 90 mcg/actuation 1 inh inhalation DAILY PRN sob 09/08/23 09/27/23 aerosol inhaler cyclobenzaprine 10 mg tablet 10 mg PO DAILY PRN muscle spasms 09/08/23 09/27/23 doxycycline hyclate 100 mg capsule 100 mg PO DAILY 09/08/23 09/27/23 omeprazole 40 mg capsule,delayed 40 mg PO DAILY 09/08/23 09/27/23 release phentermine 8 mg tablet (Lomaira) 8 mg PO DAILY 09/08/23 09/27/23 phentermine-topiramate 25 mg PO DAILY 09/08/23 09/27/23 semaglutide (weight loss) 1.7 2.4 mg subcut 09/08/23 mg/0.75 mL subcutaneous pen injector (Wegovy) Allergies Allergy/AdvReac Type Severity Reaction Status Date / Time codeine AdvReac Severe GI UPSET Verified 09/27/23 09:06 Review of Systems Review of Systems: A 10 system review of systems was completed on the patient and is negative except for what is stated in the HPI. Nursing and ancillary documentation was reviewed. [facility] Past Medical History Medical History Colon cancer screening Left leg pain Morbid obesity Nausea after anesthesia Tear of lateral meniscus of right knee Surgical History Surgical History History of cholecystectomy History of gastric bypass History of hysterectomy History of inguinal hernia repair Family History Family History Father Hypertension Sibling Hypertension Grandparent Family history of elevated blood lipids Mother Patient's mother is Hypertension Family history of lung cancer Social History Social History Smoking status: Never smoker Second hand tobacco smoke exposure: No Alcohol intake: never Substance use: never Substance use type: does not use Living arrangements: with family Gender identity (if verbalized by the patient): Female Spiritual care concerns: No Exam Narrative: GENERAL: Well-appearing, well-nourished, and in no acute distress. HEAD: Normocephalic, atraumatic. EYES: PERRLA and EOMI. ENT: Nares clear, no rhinorrhea or epistaxis. Mucous membranes moist. NECK: Supple. CHEST: Clear to auscultation. No respiratory distress. HEART: Regular rate and rhythm. No murmur heard. Normal peripheral pulses. ABDOMEN: Soft, diffuse mild tenderness, nondistended, normal active bowel sounds. EXTREMITIES: Normal range of motion. No edema. SKIN: Warm, dry, no rash. NEURO: No focal deficits. Alert and oriented x3. PSYCH: Normal mood and affect. Course Vital Signs Vital signs: Vital Signs Temperature 36.4 C 01/17/24 21:21 Pulse Rate 81 01/17/24 21:21 Respiratory Rate 17 01/17/24 21:21 Blood Pressure 130/81 01/17/24 21:21 Pulse Oximetry 99 01/17/24 21:21 Oxygen Delivery Room Air 01/17/24 21:21 Temperature 36.4 C 01/17/24 21:21 Pulse Rate 75 01/18/24 01:59 Respiratory Rate 18 01/18/24 01:59 Blood Pressure 138/85 01/18/24 01:59 Pulse Oximetry 97 01/18/24 01:59 Oxygen Delivery Room Air 01/17/24 21:21 Medical Decision Making MDM Narrative Medical decision making narrative: Differential diagnosis includes ureterolithiasis, UTI, pyelonephritis, intra-abdominal infection Laboratory studies showed a urinalysis with greater than 100 red blood cells and 6-10 white blood cells in the urine electrolytes are within normal limits CBC showed a white count of 7.0 CT scan of the abdomen pelvis showed Thickening in the proximal ureter concerning for pyelonephritis. The patient was started on Keflex and will be discharged to follow-up with her primary care provider Vital Signs Vital Signs: Vital Signs Temperature 36.4 C 01/17/24 21:21 Pulse Rate 81 01/17/24 21:21 Respiratory Rate 17 01/17/24 21:21 Blood Pressure 130/81 01/17/24 21:21 Pulse Oximetry 99 01/17/24 21:21 Oxygen Delivery Room Air 01/17/24 21:21 Temperature 36.4 C 01/17/24 21:21 Pulse Rate 75 01/18/24 01:59 Respiratory Rate 18 01/18/24 01:59 Blood Pressure 138/85 01/18/24 01:59 Pulse Oximetry 97 01/18/24 01:59 Oxygen Delivery Room Air 01/17/24 21:21 Lab Data 01/17/24 23:10 01/17/24 23:10 Labs: Lab Results 01/17/24 01/17/24 Range/Units 21:33 23:10 WBC 7.0 (4.5-10.0) K/mm3 RBC 4.70 (4.2-5.4) M/mm3 Hgb 13.6 (12.0-15.0) g/dL Hct 40.6 (37.0-47.0) % MCV 86.4 (80-100) fl MCH 28.9 (26-34) pg MCHC 33.5 (32-36) g/dl RDW 12.4 (11.5-14.5) % Plt Count 427 H (150-375) k/mm3 MPV 9.9 (7.4-10.4) fl Immature Gran % (Auto) 0.3 (0-0.5) % Neut % (Auto) 57.2 (45.5-73.1) % Lymph % (Auto) 27.6 (18.3-44.2) % [place] % (Auto) 13.3 H (2.6-8.5) % Eos % (Auto) 0.9 (0-4.4) % Baso % (Auto) 0.7 (0.2-1.2) % Lymph # (Auto) 1.93 (0.9-3.2) K/mm3 [place] # (Auto) 0.9 H (0.1-0.6) K/mm3 Eos # (Auto) 0.1 (0-0.3) K/mm3 Baso # (Auto) 0.1 (0.0-0.1) K/mm3 Abs Immat Gran (auto) 0.02 (0.00-0.031) K/mm3 Absolute Neuts (auto) 4.0 (1.3-6.7) K/mm3 Absolute Nucleated RBC 0.000 (0.0-0.012) K/mm3 Nucleated RBC % 0.0 (0.0-0.2) % % Immature Plt Fraction 3.3 (0.9-11.2) % Sodium 140 (137-145) mmol/L Potassium 3.5 (3.4-5.0) mmol/L Chloride 103 (98-107) mmol/L Carbon Dioxide 28 (22-30) mmol/L Anion Gap 9 (4-12) mmol/L BUN 15 (7-17) mg/dL Creatinine 0.90 (0.7-1.0) mg/dL Estim Creat Clear Calc 64 ml/min Estimated GFR > 60 (59 - ) Glucose 91 (65-110) mg/dL Calcium 9.3 (8.4-10.2) mg/dL Total Bilirubin 0.5 (0.2-1.3) mg/dL AST 29 (14-36) U/L ALT 22 (6-35) U/L Alkaline Phosphatase 123 (38-126) U/L Total Protein 8.0 (6.3-8.2) g/dL Albumin 4.4 (3.5-5.1) g/dL Lipase 162 (23-300) U/L Urine Color Dark yellow (Yellow) Urine Appearance Cloudy H (Clear) Urine pH 6.0 (5.0-9.0) Ur Specific [place] 1.026 (1.001-1.035) Urine Protein 1+ H (Negative) mg/dL Urine Glucose (UA) Negative (Negative) mg/dL Urine Ketones Trace H (Negative) mg/dL Ur Blood (Man) 3+ H (Negative) Urine Nitrate Negative (Negative) Urine Bilirubin Negative (Negative) Urine Urobilinogen 1.0 (<2.0) mg/dL Add Ur Microanalysis Reviewed Leukocyte Esterase Rfl Trace H (Negative) PB/UL Urine RBC >100 H (0-2) /hpf Urine WBC 6-10 H (0-3) /hpf Ur Squamous Epith Cells None seen (Few) /hpf Calcium Oxalate Crystal Present (None) /hpf Urine Bacteria None seen /hpf Urine Casts 3-5 Urine Mucus Present /lpf Urine Test Negative Discharge Plan Discharge Clinical Impression: UTI (urinary tract infection), Pyelonephritis Patient Disposition: Home, Self-Care Condition: Stable Instructions: Antibiotic Form, Urinary Tract Infection in Women (ED), Kidney Infection (ED), Abdominal Pain (ED) Prescriptions: New cephalexin 500 mg capsule 500 mg PO Q8H 7 Days Qty: 21 0RF No Action multivitamin Tablet 1 tablet PO DAILY calcium carbonate 500 mg calcium (1,250 mg) Tablet 500 mg PO DAILY ferrous sulfate [Iron (ferrous sulfate)] 325 mg (65 mg iron) Tablet 325 mg PO DAILY ondansetron 4 mg tablet,disintegrating 4 mg PO Q8H PRN (Reason: nausea and vomiting) Qty: 15 0RF cyclobenzaprine 10 mg tablet 10 mg PO DAILY PRN (Reason: muscle spasms) Lomaira 8 mg Tablet 8 mg PO DAILY Rx Instructions: must administer 30 minutes before meals/food doxycycline hyclate 100 mg capsule 100 mg PO DAILY omeprazole [Prilosec] 40 mg Capsule,Delayed Release(Dr/Ec) 40 mg PO DAILY albuterol sulfate 90 mcg/actuation HFA aerosol inhaler 1 inh INHALATION DAILY PRN (Reason: sob) Wegovy 1.7 mg/0.75 mL pen injector 2.4 mg SUBCUT phentermine-topiramate 25 mg PO DAILY Follow-up/Referrals: Pk,Marivel Hudson NP [Primary Care Provider] - Time of Disposition: 03:33
[2024-01-18 03:45] VITALS: BP 131/81; PULSE 93; RESP 18; O2SAT 99
[2024-01-18] MEDS: CEPHALEXIN 500 MG CAPSULE PO (03:47)
== END 2024-01-18 03:47 | disposition home or self-care (01) ==
PROVIDERS: Emergency Provider Emergency Medicine; PCP Nurse Practitioner Women's Health
DX: N12 Tubulo-interstitial nephritis, not specified as acute or chronic (principal); E66.01 Morbid (severe) obesity due to excess calories; Z68.35 Body mass index [BMI] 35.0-35.9, adult; Z90.49 Acquired absence of other specified parts of digestive tract; Z98.84 Bariatric surgery status; Z90.710 Acquired absence of both cervix and uterus; Z79.899 Other long term (current) drug therapy
CPT/HCPCS: 36415; 74177; 80053; 81001; 81025; 83690; 85025; 85055; 87086; 96374; 99284; A9270; J2270; Q9967